=== PATIENT | female | born 1980 | race African-American/Black ===

== ENCOUNTER 2023-08-12 03:54 | Inpatient (IN) | payer MEDICAID, MEDICARE ==
[~2023-08-12] VITALS: Ht 167.6 cm; Wt 78.5 kg
[2023-08-12] MEDS ORDERED: LACTATED RINGERS 1,000 ML IV SCH (08:45)
[2023-08-12] MEDS ORDERED: ACETAMINOPHEN 325MG TABLET PO ONE (08:45)
[2023-08-12] MEDS ORDERED: METOCLOPRAMIDE HCL 10MG/2ML VIAL IV ONE (08:45)
[2023-08-12 09:34] LABS: HEMATOCRIT. 41.2 % (36.0-48.0); HEMOGLOBIN. 13.2 g/dL (12.0-16.0); MEAN CORPUSCULAR HEMOGLOBIN 26.3 pg (28.0-32.0); MEAN CORPUSCULAR VOLUME 82.2 fL (81.0-99.0); MEAN PLATELET VOLUME 8.3 fl (7.4-10.4); PLATELET 143 x1000/uL (130-400); RED BLOOD CELL COUNT 5.01 mill/uL (4.2-5.4); WHITE BLOOD COUNT 8.5 x1000/uL (4.5-11.0)
[2023-08-12 09:38] LABS: DIFFERENTIAL COMMENT 1
[2023-08-12 09:40] LABS: CHLORIDE 97 mEq/L (98-107); POTASSIUM 4.3 mEq/L (3.5-5.1); SODIUM 128 mEq/L (136-145)
[2023-08-12 09:41] LABS: CALCIUM 9.9 mg/dL (8.7-10.4); CARBON DIOXIDE 26 mEq/L (21-32)
[2023-08-12 09:45] LABS: CREATININE 1.1 mg/dL (0.6-1.0)
[2023-08-12 09:46] LABS: GLUCOSE 86 mg/dL (70-105); UREA NITROGEN BLOOD 11 mg/dL (9-23)
[2023-08-12 09:48] LABS: ALANINE AMINOTRANSFERASE 31 IU/L (10-49); ALBUMIN 4.4 g/dL (3.2-4.8); ASPARTATE AMINOTRANSFERASE 33 IU/L (<34); BILIRUBIN TOTAL 0.7 mg/dL (0.1-1.0); PROTEIN TOTAL 8.5 g/dL (6.0-8.3)
[2023-08-12 10:38] LABS: ANISOCYTOSIS 1+; PLATELET ESTIMATE NORMAL
[2023-08-12 11:07] LABS: HCG SCREEN NEGATIVE
[2023-08-12] MEDS: ACETAMINOPHEN 325MG TABLET PO NR (13:30)
[2023-08-12] MEDS: METOCLOPRAMIDE HCL 10MG/2ML VIAL IV NR (13:32)
[2023-08-12] MEDS ORDERED: DOCUSATE SODIUM 100MG CAPSULE PO PRN (16:15)
[2023-08-12] MEDS ORDERED: GUAIFENESIN 200MG/10ML SUGAR FREE UDC PO PRN (16:15)
[2023-08-12] MEDS ORDERED: ONDANSETRON HCL 4MG/2ML INJ IV PRN (16:15)
[2023-08-12] MEDS ORDERED: TRAMADOL 50MG TABLET PO PRN (16:15)
[2023-08-12] MEDS: SODIUM CHLORIDE 0.45% 1,000 ML IV SCH (16:15)
[2023-08-12] MEDS ORDERED: IPRATROPIUM/ALBUTEROL 0.5-3(2.5)MG/3ML NEB HHN PRN (16:15)
[2023-08-12 16:44] VITALS: BP 144/96; PULSE 111; RESP 16; TEMP 97.6
[2023-08-12] MEDS: ACETAMINOPHEN 325MG TABLET PO PRN (18:15)
[2023-08-12] MEDS ORDERED: UMEC1DIS IH (18:34)
[2023-08-12] MEDS ORDERED: DAPS100T PO (18:34)
[2023-08-12] MEDS ORDERED: BICT1TAB PO (18:34)
[2023-08-12] MEDS ORDERED: DIGO125T80 PO ×2 (18:34→18:44)
[2023-08-12] MEDS ORDERED: FLUO20CA39 PO (18:34)
[2023-08-12] MEDS ORDERED: HYDR25TA PO (18:34)
[2023-08-12] MEDS ORDERED: ALBU18HF2 IH (18:34)
[2023-08-12] MEDS ORDERED: CARV12.545 PO (18:34)
[2023-08-12 20:00] VITALS: BP 146/87; PULSE 119; RESP 19; TEMP 100.6
[2023-08-12] MEDS ORDERED: UMECLIDINIUM BROMIDE 1 INH BLST.W.DEV IH SCH (20:00)
[2023-08-13] VITALS: BP 156/103; PULSE 102; RESP 19; TEMP 97.7
[2023-08-13] MEDS ORDERED: HYDRALAZINE 20MG/ML VIAL IV PRN (02:00)
[2023-08-13 04:00] VITALS: BP 174/101; PULSE 98; RESP 19; TEMP 98.7
[2023-08-13] MEDS: HYDRALAZINE 10 MG in SODIUM CHLORIDE 0.9% 49.5 ML IV PRN (05:48)
[2023-08-13 05:55] LABS: HEMATOCRIT. 41.9 % (36.0-48.0); HEMOGLOBIN. 13.6 g/dL (12.0-16.0); MEAN CORPUSCULAR HEMOGLOBIN 26.5 pg (28.0-32.0); MEAN CORPUSCULAR HGB CONC 32.4 g/dL (31.0-37.0); MEAN CORPUSCULAR VOLUME 81.8 fL (81.0-99.0); MEAN PLATELET VOLUME 8.7 fl (7.4-10.4); PLATELET 137 x1000/uL (130-400); RED BLOOD CELL COUNT 5.12 mill/uL (4.2-5.4); WHITE BLOOD COUNT 7.6 x1000/uL (4.5-11.0)
[2023-08-13 06:16] LABS: DIFFERENTIAL COMMENT 1
[2023-08-13] MEDS ORDERED: NALOXONE HCL 0.4MG/ML VIAL IV PRN (06:30)
[2023-08-13 08:00] VITALS: BP 141/77; PULSE 91; RESP 18; TEMP 97.6
[2023-08-13] MEDS: FLUOXETINE HCL 20MG CAPSULE PO SCH (09:00)
[2023-08-13] MEDS: DAPSONE 100MG TABLET PO SCH (09:00)
[2023-08-13] MEDS: DIGOXIN 125MCG TABLET PO SCH (09:00)
[2023-08-13] MEDS: AMLODIPINE 10MG TABLET PO SCH (09:00)
[2023-08-13] MEDS: CARVEDILOL 12.5MG TABLET PO SCH (09:00)
[2023-08-13] MEDS: HYDROCHLOROTHIAZIDE 25MG TABLET PO SCH (09:00)
[2023-08-13] MEDS ORDERED: ALBUTEROL 6.7GM HFA INHALER ORI ONE (10:00)
[2023-08-13 12:00] VITALS: BP 132/72; PULSE 78; RESP 18; TEMP 97.4
[2023-08-13 12:38] VITALS: BP 132/70; PULSE 78; TEMP 97.4; O2SAT 99
[2023-08-13 13:19] LABS: HEMATOCRIT. 44.4 % (36.0-48.0); HEMOGLOBIN. 14.9 g/dL (12.0-16.0); MEAN CORPUSCULAR HEMOGLOBIN 27.4 pg (28.0-32.0); MEAN CORPUSCULAR HGB CONC 33.6 g/dL (31.0-37.0); MEAN CORPUSCULAR VOLUME 81.4 fL (81.0-99.0); MEAN PLATELET VOLUME 8.3 fl (7.4-10.4); PLATELET 147 x1000/uL (130-400); RED BLOOD CELL COUNT 5.45 mill/uL (4.2-5.4); RED CELL DISTRIBUTION WIDTH 16.9 % (11.6-14.6); WHITE BLOOD COUNT 7.1 x1000/uL (4.5-11.0)
[2023-08-13 13:24] LABS: DIFFERENTIAL COMMENT 1
[2023-08-13 13:45] LABS: CHLORIDE 95 mEq/L (98-107); POTASSIUM 4.3 mEq/L (3.5-5.1); SODIUM 125 mEq/L (136-145)
[2023-08-13 13:46] LABS: CALCIUM 9.6 mg/dL (8.7-10.4); CARBON DIOXIDE 24 mEq/L (21-32)
[2023-08-13 13:51] LABS: GLUCOSE 91 mg/dL (70-105); UREA NITROGEN BLOOD 12 mg/dL (9-23)
[2023-08-13 19:23] LABS: PLATELET ESTIMATE NORMAL
[2023-08-13 20:45] LABS: ANISOCYTOSIS 1+; PLATELET ESTIMATE NORMAL
[2023-08-14] MEDS ORDERED: DIGOXIN 125MCG TABLET PO SCH (18:00)
== END 2023-08-13 15:04 | disposition home or self-care (01) | DRG 977 ==
LOC: ER 03:54 → EDBEDREQ 08:48 → 6EST 10:09 → EDBEDREQTM 10:12 → EDBEDREQ 10:12
PROVIDERS: ADMIT Hospitalist; ATTEND Hospitalist
DX: B20 Human immunodeficiency virus [HIV] disease (principal); E87.1 Hypo-osmolality and hyponatremia; M79.10 Myalgia, unspecified site; J44.9 Chronic obstructive pulmonary disease, unspecified; I50.9 Heart failure, unspecified; Z88.1 Allergy status to other antibiotic agents
CPT/HCPCS: 36415; 71045; 80048; 80053; 80061; 82962; 83605; 84145; 84703; 85025; 93970; 99285; J2765

== ENCOUNTER 2024-02-06 17:28 | Emergency (ER) | payer MEDICARE, OTHER ==
[~2024-02-06] VITALS: Ht 175.3 cm; Wt 77.0 kg
[~2024-02-06 17:28] MED LIST: ALBU18HF2 IH; BICT1TAB PO; CARV12.545 PO; DAPS100T PO; DIGO125T80 PO; FLUO-413 PO; HYDR25TA PO; UMEC1DIS IH
[2024-02-06 17:31] VITALS: O2SAT 99
[2024-02-06 19:15] LABS: BASOPHILS % 0.6 % (0.0-2.0); EOSINOPHILS % 0.1 % (0.0-5.0); HEMATOCRIT. 34.7 % (36.0-48.0); HEMOGLOBIN. 10.7 g/dL (12.0-16.0); LYMPHOCYTES % 13.8 % (20.0-50.0); MEAN CORPUSCULAR HEMOGLOBIN 25.6 pg (28.0-32.0); MEAN CORPUSCULAR VOLUME 82.8 fL (81.0-99.0); MEAN PLATELET VOLUME 8.3 fl (7.4-10.4); MONOCYTES % 11.7 % (2.0-8.0); NEUTROPHILS % 73.8 % (40.0-76.0); PLATELET 126 x1000/uL (130-400); RED BLOOD CELL COUNT 4.19 mill/uL (4.2-5.4); RED CELL DISTRIBUTION WIDTH 16.9 % (11.6-14.6); WHITE BLOOD COUNT 5.1 x1000/uL (4.5-11.0)
[2024-02-06 19:25] LABS: CARBON DIOXIDE 24 mEq/L (21-32); CHLORIDE 101 mEq/L (98-107); POTASSIUM 4.1 mEq/L (3.5-5.1); SODIUM 133 mEq/L (136-145)
[2024-02-06 19:26] LABS: CALCIUM 8.5 mg/dL (8.7-10.4)
[2024-02-06 19:30] LABS: TROPONIN I HIGH SENSITIVITY 17 ng/L (3.0-34)
[2024-02-06 19:31] LABS: CREATININE 1.1 mg/dL (0.6-1.0); GLUCOSE 65 mg/dL (70-105); UREA NITROGEN BLOOD 14 mg/dL (9-23)
[2024-02-06 21:26] LABS: HCG SCREEN NEGATIVE
[2024-02-06] MEDS ORDERED: ALBU18HF2 IH (22:54)
[2024-02-06 23:10] VITALS: BP 140/82; PULSE 91; RESP 16; TEMP 36.89184; O2SAT 99
[2024-02-07] MEDS ORDERED: IOHEXOL-350 100 ML BOTTLE ONE (11:52)
== END 2024-02-06 23:30 | disposition home or self-care (01) ==
LOC: ER 17:28
DX: J06.9 Acute upper respiratory infection, unspecified (principal); B97.89 Other viral agents as the cause of diseases classified elsewhere; I50.9 Heart failure, unspecified; Z88.1 Allergy status to other antibiotic agents; Z88.2 Allergy status to sulfonamides; Z88.8 Allergy status to other drugs, medicaments and biological substances
CPT/HCPCS: 99285; 71275; 71045; 80048; 84703; 85025; 84484; 36415; 93005; Q9967